=== PATIENT | female | born 1965 | race Caucasian/White ===

== ENCOUNTER 2016-09-22 04:05 | Emergency (ER) | payer MEDICARE, MEDICAID ==
[~2016-09-22 04:05] MED LIST: ABILIFY10 MG; ABILIFY30 MG; ABILIFY5 MG; ADVAIR 25028 BLISTER INH; AMOXICILLIN875 MG PO; ARICEPT10 MG; ARICEPT5 MG; AUGMENTIN 875-11 TAB PO; CALCIUM 600 W/V1 TAB; COGENTIN1 MG/TA1 PO; COLACE-T100 MG PO; CYMBALTA30 MG PO; DIFLUCAN100 MG PO; DUONEB 2.5-0.5 M3 ML IH; FLUPHENAZINE IM; GLUCOPHAGE500 MG PO; GLUCOPHAGE500 MG/TA2 PO; HYDROCHLOROTHIA50 MG PO; IBUPROFEN600 MG; INVEGA; KEFLEX500 M1 PO; LAMICTAL100 MG; LAMICTAL200 MG; LASIX40 MG; LOVENOX40 MG/0.4 SQ; MELOXICAM15 MG PO; MOBIC15 M1 PO; MOTRIN800 MG PO; NAPROSYN125 MG/5 M; NORCO 5/325 TAB1 TAB PO; NUVIGIL50 MG PO; OMEGA 31 CAP; PEN-VEE K500 MG PO; PERCOCET 5/3251 TAB PO; PERPHENAZINE PO; PERPHENAZINE16 MG PO; POTASSIUM CHLO20 MEQ; PREDNISONE10 MG PO; PROVIGIL100 MG PO; PROVIGIL200 MG PO; RISPERDAL3 MG; SENOKOT-S TABLE1 TAB PO; SPIRONOLACTONE50 MG PO; TRILAFON PO; TYLENOL325 MG PO; ULTRAM50 MG; ULTRAM50 MG PO; ZITHROMAX250 MG PO; ZOCOR20 MG PO; ZYPREXA10 MG; ZYPREXA2.5 MG; ZYPREXA20 MG; ZYPREXA5 MG; [UNRECOGNIZED DRUG - OTHER] PO
[2016-09-22] MEDS ORDERED: BUPROPION XL300 M1 PO (04:25)
[2016-09-22] MEDS ORDERED: OMEPRAZOLE20 M3 PO (04:25)
[2016-09-22] MEDS ORDERED: MULTIVITAMINS1 EAC6 PO (04:27)
[2016-09-22] MEDS ORDERED: PROPRANOLOL HCL10 M1 PO (04:27)
[2016-09-22] MEDS ORDERED: FLUPHENAZINE HCL5 M1 PO (04:27)
[2016-09-22] MEDS ORDERED: BENZTROPINE MESY1 M1 PO (04:28)
== END 2016-09-22 05:05 ==
LOC: EDMED 04:05
DX: I83.93 Asymptomatic varicose veins of bilateral lower extremities (principal); E66.01 Morbid (severe) obesity due to excess calories; I10 Essential (primary) hypertension; E11.9 Type 2 diabetes mellitus without complications; F20.9 Schizophrenia, unspecified; F31.9 Bipolar disorder, unspecified; Z98.890 Other specified postprocedural states; F17.210 Nicotine dependence, cigarettes, uncomplicated